=== PATIENT | male | born 1965 | race Caucasian/White ===

== ENCOUNTER → 2020-04-12 | Outpatient (CLI) | payer BC ==
[2020-04-12 09:14] LABS: BASOPHILS ABSOLUTE AUTO 0.05 K/mm3 (0.00-0.23); BASOPHILS PERCENT AUTO 1 % (0-2); EOSINOPHILS ABSOLUTE AUTO 0.01 K/mm3 (0.00-0.68); EOSINOPHILS PERCENT AUTO 0 % (0-6); Hematocrit 47.4 % (37.0-53.0); IMMATURE GRAN ABSOLUTE AUTO 0.02 K/mm3 (0.00-0.10); IMMATURE GRAN PERCENT AUTO 0 % (0-1); LYMPHOCYTES ABSOLUTE AUTO 0.55 K/mm3 (0.84-5.20); LYMPHOCYTES PERCENT AUTO 9 % (21-46); MONOCYTES ABSOLUTE AUTO 0.75 K/mm3 (0.16-1.47); MONOCYTES PERCENT AUTO 12 % (4-13); Mean Corpuscular HGB 31.9 pg (26.0-34.0); Mean Corpuscular HGB Conc 33.8 g/dL (31.5-36.5); Mean Corpuscular Volume 95 fL (80-100); Mean Platelet Volume 9.2 fL (9.1-12.4); NEUTROPHILS ABSOLUTE AUTO 4.72 K/mm3 (1.96-9.15); NEUTROPHILS PERCENT AUTO 77 % (41-73); Platelet Count 293 K/mm3 (150-400); RDW Coefficient Variation 11.3 % (11.7-14.2); RDW Standard Deviation 38.7 fL (35.1-46.3); Red Blood Cell Count 5.01 M/mm3 (4.30-5.90)
[2020-04-12 09:16] LABS: Alanine Aminotransfer (ALT/SGP 42 U/L (12-78); Albumin, Blood 3.5 g/dL (3.4-5.0); Albumin/Globulin Ratio 0.9 (0.8-1.8); Alk Phos 108 U/L (40-126); Anion Gap 8 mmol/L (6-16); Aspartate Aminotrans (AST/SGOT 20 U/L (12-37); Bilirubin, Total 1.4 mg/dL (0.1-1.0); Blood Urea Nitrogen 18 mg/dL (8-24); Bun/Creatinine Ratio 13.5 (12.0-20.0); CO2, Blood 28 mmol/L (21-32); Calcium, Blood 8.7 mg/dL (8.5-10.1); Chloride, Blood 100 mmol/L (98-108); Creatinine, Blood 1.33 mg/dL (0.60-1.20); Globulin, Blood 3.8 g/dL (2.2-4.0); Glomerular Filtration Rate 56 (60-); Glucose, Blood 107 mg/dL (70-99); Potassium, Blood 4.2 mmol/L (3.5-5.5); Sodium, Blood 136 mmol/L (136-145); Total Protein, Blood 7.3 g/dL (6.4-8.2)
[2020-04-12 09:32] LABS: Troponin I <0.017 ng/mL (0.000-0.040)
[2020-04-13 15:44] LABS: CORONAVIRUS (COVID19) CSH-NRL Negative (Negative)
== END | disposition home or self-care (01) ==
LOC: LAB EV 08:57 → LAB SHORT 08:57
PROVIDERS: Physician Assistant
DX: R07.89 Other chest pain (principal); Z20.828 Contact with and (suspected) exposure to other viral communicable diseases
CPT/HCPCS: 80053; 84484; 85025; U0003

== ENCOUNTER 2021-01-01 02:46 | Emergency (ER) | payer BC ==
[~2021-01-01] VITALS: Ht 175.3 cm; Wt 90.7 kg
[2021-01-01 03:17] LABS: BASOPHILS ABSOLUTE AUTO 0.04 K/mm3 (0.00-0.23); BASOPHILS PERCENT AUTO 0 % (0-2); EOSINOPHILS ABSOLUTE AUTO 0.03 K/mm3 (0.00-0.68); EOSINOPHILS PERCENT AUTO 0 % (0-6); Hematocrit 44.2 % (37.0-53.0); Hemoglobin 15.6 g/dL (13.5-17.5); IMMATURE GRAN ABSOLUTE AUTO 0.03 K/mm3 (0.00-0.10); IMMATURE GRAN PERCENT AUTO 0 % (0-1); LYMPHOCYTES ABSOLUTE AUTO 1.01 K/mm3 (0.84-5.20); LYMPHOCYTES PERCENT AUTO 11 % (21-46); MONOCYTES ABSOLUTE AUTO 0.51 K/mm3 (0.16-1.47); MONOCYTES PERCENT AUTO 6 % (4-13); Mean Corpuscular HGB 32.7 pg (26.0-34.0); Mean Corpuscular HGB Conc 35.3 g/dL (31.5-36.5); Mean Corpuscular Volume 93 fL (80-100); Mean Platelet Volume 9.3 fL (9.1-12.4); NEUTROPHILS ABSOLUTE AUTO 7.61 K/mm3 (1.96-9.15); NEUTROPHILS PERCENT AUTO 83 % (41-73); Platelet Count 353 K/mm3 (150-400); RDW Coefficient Variation 11.2 % (11.7-14.2); RDW Standard Deviation 38.1 fL (35.1-46.3); Red Blood Cell Count 4.77 M/mm3 (4.30-5.90); White Blood Cell Count 9.23 K/mm3 (4.00-11.30)
[2021-01-01 03:38] LABS: Alanine Aminotransfer (ALT/SGP 36 U/L (12-78); Albumin/Globulin Ratio 1.3 (0.8-1.8); Alk Phos 91 U/L (50-136); Anion Gap 7 mmol/L (6-16); Aspartate Aminotrans (AST/SGOT 15 U/L (12-37); Bilirubin, Total 1.8 mg/dL (0.1-1.0); Blood Urea Nitrogen 25 mg/dL (8-24); Bun/Creatinine Ratio 18.4 (12.0-20.0); CO2, Blood 27 mmol/L (21-32); Calcium, Blood 10.4 mg/dL (8.5-10.1); Chloride, Blood 104 mmol/L (98-108); Creatinine, Blood 1.36 mg/dL (0.60-1.20); Globulin, Blood 3.1 g/dL (2.2-4.0); Glomerular Filtration Rate 54 (60-); Glucose, Blood 126 mg/dL (70-99); Potassium, Blood 3.8 mmol/L (3.5-5.5); Sodium, Blood 138 mmol/L (136-145); Total Protein, Blood 7.1 g/dL (6.4-8.2); Troponin I <0.015 ng/mL (0.000-0.040)
[2021-01-01] MEDS ORDERED: OLMESARTAN MEDO40 MG PO (05:57)
[2021-01-01] MEDS ORDERED: Simvastatin20 MG (05:57)
[2021-01-01] MEDS ORDERED: OMEP20ER PO (05:57)
== END 2021-01-01 09:09 | disposition home or self-care (01) ==
LOC: ER 02:46
PROVIDERS: Student in an Organized Health Care Education/Training Program
DX: R07.9 Chest pain, unspecified (principal); K21.9 Gastro-esophageal reflux disease without esophagitis; Z79.899 Other long term (current) drug therapy
CPT/HCPCS: 36415; 71045; 80053; 83690; 83880; 84484; 85025; 93005; 93010; 99284-25; A9270

== ENCOUNTER 2021-02-16 19:09 | Emergency (ER) | payer BC ==
[~2021-02-16] VITALS: Ht 175.3 cm; Wt 86.2 kg
[~2021-02-16 19:09] MED LIST changes: -METO5A PO; -OXAYDO5 M1 PO
[2021-02-16] MEDS ORDERED: METO5A PO (19:56)
[2021-02-19] MEDS ORDERED: OXAYDO5 M1 PO (08:06)
== END 2021-02-16 20:13 | disposition home or self-care (01) ==
LOC: ER 19:09
DX: R10.12 Left upper quadrant pain (principal); K21.9 Gastro-esophageal reflux disease without esophagitis; Z79.899 Other long term (current) drug therapy
CPT/HCPCS: 99282; A9270

== ENCOUNTER → 2021-02-16 | Outpatient (CLI) | payer BC ==
[~2021-02-16] MED LIST: METO5A PO; OLMESARTAN MEDO40 MG PO; OMEP20ER PO; OXAYDO5 M1 PO; Simvastatin20 MG
[2021-02-16 17:31] LABS: BASOPHILS ABSOLUTE AUTO 0.03 K/mm3 (0.00-0.23); BASOPHILS PERCENT AUTO 0 % (0-2); EOSINOPHILS ABSOLUTE AUTO 0.02 K/mm3 (0.00-0.68); EOSINOPHILS PERCENT AUTO 0 % (0-6); Hematocrit 42.5 % (37.0-53.0); Hemoglobin 15.2 g/dL (13.5-17.5); IMMATURE GRAN ABSOLUTE AUTO 0.03 K/mm3 (0.00-0.10); IMMATURE GRAN PERCENT AUTO 0 % (0-1); LYMPHOCYTES ABSOLUTE AUTO 0.64 K/mm3 (0.84-5.20); LYMPHOCYTES PERCENT AUTO 7 % (21-46); MONOCYTES ABSOLUTE AUTO 0.55 K/mm3 (0.16-1.47); MONOCYTES PERCENT AUTO 6 % (4-13); Mean Corpuscular HGB 32.8 pg (26.0-34.0); Mean Corpuscular HGB Conc 35.8 g/dL (31.5-36.5); Mean Corpuscular Volume 92 fL (80-100); Mean Platelet Volume 9.4 fL (9.1-12.4); NEUTROPHILS ABSOLUTE AUTO 7.71 K/mm3 (1.96-9.15); NEUTROPHILS PERCENT AUTO 86 % (41-73); Platelet Count 361 K/mm3 (150-400); RDW Coefficient Variation 11.4 % (11.7-14.2); RDW Standard Deviation 38.1 fL (35.1-46.3); Red Blood Cell Count 4.64 M/mm3 (4.30-5.90); White Blood Cell Count 8.98 K/mm3 (4.00-11.30)
[2021-02-16 17:44] LABS: Alanine Aminotransfer (ALT/SGP 40 U/L (12-78); Albumin, Blood 4.3 g/dL (3.4-5.0); Albumin/Globulin Ratio 1.4 (0.8-1.8); Alk Phos 89 U/L (40-126); Anion Gap 14 mmol/L (6-16); Aspartate Aminotrans (AST/SGOT 21 U/L (12-37); Bilirubin, Total 2.8 mg/dL (0.1-1.0); Blood Urea Nitrogen 26 mg/dL (8-24); Bun/Creatinine Ratio 18.7 (12.0-20.0); CO2, Blood 22 mmol/L (21-32); Calcium, Blood 9.3 mg/dL (8.5-10.1); Chloride, Blood 103 mmol/L (98-108); Creatinine, Blood 1.39 mg/dL (0.60-1.20); Glomerular Filtration Rate 53 (60-); Glucose, Blood 122 mg/dL (70-99); Potassium, Blood 3.8 mmol/L (3.5-5.5); Sodium, Blood 139 mmol/L (136-145); Total Protein, Blood 7.3 g/dL (6.4-8.2); Troponin I <0.017 ng/mL (0.000-0.040)
== END | disposition home or self-care (01) ==
LOC: LAB 17:26 → LAB SHORT 17:26
PROVIDERS: Physician Assistant Surgical
DX: R10.13 Epigastric pain (principal)
CPT/HCPCS: 80053; 83690; 84484; 85025

== ENCOUNTER 2021-03-02 08:00 | Inpatient (IN) | payer BC ==
[~2021-03-02] VITALS: Ht 175.3 cm; Wt 80.2 kg
[~2021-03-02 08:00] MED LIST changes: +METO5A PO; +OXAYDO5 M1 PO
[2021-03-02 08:42] LABS: BASOPHILS PERCENT AUTO 1 % (0-2); EOSINOPHILS ABSOLUTE AUTO 0.15 K/mm3 (0.00-0.68); EOSINOPHILS PERCENT AUTO 1 % (0-6); Hemoglobin 13.9 g/dL (13.5-17.5); IMMATURE GRAN ABSOLUTE AUTO 0.29 K/mm3 (0.00-0.10); IMMATURE GRAN PERCENT AUTO 2 % (0-1); LYMPHOCYTES ABSOLUTE AUTO 1.89 K/mm3 (0.84-5.20); LYMPHOCYTES PERCENT AUTO 14 % (21-46); MONOCYTES ABSOLUTE AUTO 1.34 K/mm3 (0.16-1.47); MONOCYTES PERCENT AUTO 10 % (4-13); Mean Corpuscular HGB Conc 33.9 g/dL (31.5-36.5); Mean Corpuscular Volume 95 fL (80-100); Mean Platelet Volume 8.8 fL (9.1-12.4); NEUTROPHILS ABSOLUTE AUTO 10.18 K/mm3 (1.96-9.15); NEUTROPHILS PERCENT AUTO 73 % (41-73); Platelet Count 682 K/mm3 (150-400); RDW Coefficient Variation 11.2 % (11.7-14.2); RDW Standard Deviation 39.2 fL (35.1-46.3); Red Blood Cell Count 4.34 M/mm3 (4.30-5.90); White Blood Cell Count 13.95 K/mm3 (4.00-11.30)
[2021-03-02 08:59] LABS: Alanine Aminotransfer (ALT/SGP 54 U/L (12-78); Albumin, Blood 2.9 g/dL (3.4-5.0); Albumin/Globulin Ratio 0.6 (0.8-1.8); Alk Phos 217 U/L (50-136); Anion Gap 7 mmol/L (6-16); Aspartate Aminotrans (AST/SGOT 25 U/L (12-37); Bilirubin, Total 1.3 mg/dL (0.1-1.0); Blood Urea Nitrogen 22 mg/dL (8-24); CO2, Blood 26 mmol/L (21-32); Calcium, Blood 9.3 mg/dL (8.5-10.1); Chloride, Blood 103 mmol/L (98-108); Creatinine, Blood 1.16 mg/dL (0.60-1.20); Globulin, Blood 4.8 g/dL (2.2-4.0); Glomerular Filtration Rate >60 (60-); Glucose, Blood 95 mg/dL (70-99); Potassium, Blood 4.3 mmol/L (3.5-5.5); Sodium, Blood 136 mmol/L (136-145); Total Protein, Blood 7.7 g/dL (6.4-8.2)
--- NOTE | 2021-03-02 11:52 | NUR ---
PT ARRIVED TO UNIT FROM ED. TRANSFERRED INDPENDENTLY IN ROOM, AMBULATED TO RESTROOM AND VOIDED. REPORTS PAIN TOLERABLE AT THIS TIME. DENIES N/V. REPORTS SOME TENDERNESS TO RUQ. HEALING LAP SITES X4 TO ABDOMEN W/DERMABOND. ORIENTED TO ROOM/CALL LIGHT. PROVIDED GOWN AND PAJAMA PANTS/PT CHANGING AT THIS TIME. PLACED MSG OUT TO DR HOPKINS TO NOTIFY OF ARRIVAL TO UNIT/REQUEST ORDERS.
[2021-03-02 13:01] LABS: International Normalized Ratio 1.05
--- NOTE | 2021-03-02 15:47 | NUR ---
PT TO CT.
--- NOTE | 2021-03-02 17:33 | NUR ---
SUMMARY PT ARRIVED BACK TO UNIT FROM CT GUIDED DRAIN PLACEMENT. DRAIN PRODUCING RED PURULENT FLUID. PT DENIES NEEDS FOR PAIN MEDS AT THIS TIME. DENIES NAUSEA. EATING DINNER. CALL LIGHT IN REACH. VSS.
--- NOTE | 2021-03-03 06:55 | NUR ---
SUMMARY DRAIN CONT TO HAVE PURULENT DRNG.PT REPORTED SUBLILMAZE INEFFECTIVE. WAS TAKING JEANETTE AT HOME S/P LAP JENNIFER.RECEIVED ORDER FOR JEANETTE AND PT VERB EFFECTIVE.
--- NOTE | 2021-03-03 18:23 | NUR ---
PATIENT ALERT AND ORIENTED X 4, ABLE TO MAKE NEEDS AND WANTS KNOWN. NO SIGNS OR SYMPTOMS ACUTE DISTRESS NOTED. GOOD APPETITE NOTED, NO COMPLAINTS OF NAUSEA. UP AD JACKIE IN ROOM. CONTINENT OF BOWEL AND BLADDER WITH USE OF URINAL. DRAIN NOTED TO ABDOMEN DRAINING BROWN/LLAMAS DRAINAGE. CALL LIGHT AND WATER IN EASY REACH. WILL CONTINUE TO MONITOR.
[2021-03-04 04:42] LABS: BASOPHILS ABSOLUTE AUTO 0.05 K/mm3 (0.00-0.23); BASOPHILS PERCENT AUTO 1 % (0-2); EOSINOPHILS ABSOLUTE AUTO 0.19 K/mm3 (0.00-0.68); EOSINOPHILS PERCENT AUTO 3 % (0-6); Hematocrit 38.6 % (37.0-53.0); Hemoglobin 12.8 g/dL (13.5-17.5); IMMATURE GRAN PERCENT AUTO 2 % (0-1); LYMPHOCYTES ABSOLUTE AUTO 1.23 K/mm3 (0.84-5.20); LYMPHOCYTES PERCENT AUTO 20 % (21-46); MONOCYTES ABSOLUTE AUTO 0.95 K/mm3 (0.16-1.47); MONOCYTES PERCENT AUTO 15 % (4-13); Mean Corpuscular HGB 31.9 pg (26.0-34.0); Mean Corpuscular HGB Conc 33.2 g/dL (31.5-36.5); Mean Corpuscular Volume 96 fL (80-100); Mean Platelet Volume 8.6 fL (9.1-12.4); NEUTROPHILS ABSOLUTE AUTO 3.68 K/mm3 (1.96-9.15); NEUTROPHILS PERCENT AUTO 59 % (41-73); Platelet Count 608 K/mm3 (150-400); RDW Coefficient Variation 11.2 % (11.7-14.2); Red Blood Cell Count 4.01 M/mm3 (4.30-5.90)
[2021-03-04 05:23] LABS: Alanine Aminotransfer (ALT/SGP 37 U/L (12-78); Albumin, Blood 2.5 g/dL (3.4-5.0); Albumin/Globulin Ratio 0.6 (0.8-1.8); Alk Phos 162 U/L (50-136); Anion Gap 7 mmol/L (6-16); Aspartate Aminotrans (AST/SGOT 15 U/L (12-37); Bilirubin, Total 0.9 mg/dL (0.1-1.0); Blood Urea Nitrogen 13 mg/dL (8-24); Bun/Creatinine Ratio 11.8 (12.0-20.0); CO2, Blood 27 mmol/L (21-32); Calcium, Blood 8.7 mg/dL (8.5-10.1); Chloride, Blood 105 mmol/L (98-108); Globulin, Blood 4.1 g/dL (2.2-4.0); Glomerular Filtration Rate >60 (60-); Glucose, Blood 98 mg/dL (70-99); Potassium, Blood 4.3 mmol/L (3.5-5.5); Sodium, Blood 139 mmol/L (136-145); Total Protein, Blood 6.6 g/dL (6.4-8.2)
--- NOTE | 2021-03-04 05:28 | NUR ---
SUMMARY URICELL HAS FLUCTUATED FROM SERO-SANG DRNG TO [place] -RED THICK DRNG THIS AM. PT REPORTS MINIMAL DISCOMFORT.
--- NOTE | 2021-03-04 18:10 | NUR ---
PATIENT A&O X 4. ABLE TO MAKE NEEDS AND WANTS KNOWN. NO SIGNS OR SYMPTOMS ACUTE DISTRESS NOTED. CALL LIGHT AND WATER IN EASY REACH. DRAIN TO RIGHT ABDOMEN, DRESSING CDI. 45 ML BROWNISH GREEN DRAINAGE NOTED FROM DRAIN. PATIENT HAS BEEN OUT OF ROOM AMBULATING WITH NO ISSUES NOTED. WILL MONITOR.
--- NOTE | 2021-03-05 04:55 | NUR ---
SHIFT SUMMARY PT A&O X4 AND IN PLEASENT MOOD T/O SHIFT. PT VSS. PT SLEPT IN BED T/O MOST OF SHIFT. LAP SITES C/D/I. DRAIN DRAINING GREEN FLUID. CALL LIGHT W/IN REACH AND PT UTILIZING LIGHT APPROPRIATELY. BT PRESESNT IN ALL 4 Q'S. PT DENIED PAIN T/O SHIFT.
[2021-03-05] MEDS ORDERED: AMOX-CLAV 875-1 EAC5 PO (10:57)
--- NOTE | 2021-03-05 11:53 | NUR ---
DISCHARGE INSTRUCTIONS GIVEN TO PATIENT. PATIENT VERBALIZED UNDERSTANDING. NO SIGNS OR SYMPTOMS ACUTE DISTRESS NOTED. IV REMOVED FROM LFA, NO ISSUES TO NOTE. NO COMPLAINTS OF PAIN.
== END 2021-03-05 11:36 | disposition home or self-care (01) | DRG 862 ==
LOC: ER 08:00 → SURS 08:01
PROVIDERS: Emergency Medicine; ADMIT Surgery
PROC: 0W9G30Z Drainage of Peritoneal Cavity with Drainage Device, Percutaneous Approach (ICD-10-PCS; principal; 2021-03-02)
DX: T81.43XA Infection following a procedure, organ and space surgical site, initial encounter (principal); K65.1 Peritoneal abscess; I10 Essential (primary) hypertension; E78.5 Hyperlipidemia, unspecified; Y83.8 Other surgical procedures as the cause of abnormal reaction of the patient, or of later complication, without mention of misadventure at the time of the procedure
CPT/HCPCS: 36415; 49405; 74177; 78226; 80053; 83605; 83690; 85025; 85610; 87070; 87075; 87077; 87186; 87205; 96365; 96366; 96375; 96376; 99285-25; A9270; A9537; G0378; J0295; J3010; J7030; Q9967

== ENCOUNTER 2021-10-18 06:41 | Day surgery (SDC) | payer BC ==
[~2021-10-18] VITALS: Ht 175.3 cm; Wt 90.7 kg
[~2021-10-18 06:41] MED LIST changes: +AMOX-CLAV 875-1 EAC5 PO; +MULVITA PO; -Simvastatin20 MG; +Simvastatin20 MG PO
--- NOTE | 2021-10-18 07:51 | NUR ---
History, Chart, Medications and Allergies reviewed before start of procedure. Lungs clear T/O to Auscultation. Patient confirms NPO status and agrees with scheduled surgery. Pre-Op teaching done. Pt verbalizes understanding. Patient States Post-Procedure ride home has been arranged. Patient reports completing Chlorhexadine shower X2 prior to admission to hospital.
--- NOTE | 2021-10-18 10:25 | NUR ---
Dressing to procedure site clean, dry, intact with no visible drainage, swelling, erythema or bruising noted. Discharge instructions reviewed with patient. Patient verbalizes understanding. Copy given to patient to take home. Discharged via wheelchair to private car for ride home.
== END 2021-10-18 10:27 | disposition home or self-care (01) ==
LOC: ORSCMMR 06:41 → ORD 07:30 → ORSCMMR 07:30
PROVIDERS: Surgery
PROC: 0WUF0JZ Supplement Abdominal Wall with Synthetic Substitute, Open Approach (ICD-10-PCS; principal; 2021-10-18 08:15)
DX: K43.2 Incisional hernia without obstruction or gangrene (principal); I10 Essential (primary) hypertension; K21.9 Gastro-esophageal reflux disease without esophagitis; Z79.899 Other long term (current) drug therapy
CPT/HCPCS: C1781; J0690; J1100; J1885; J2370; J2405; J2704; J2710; J3010; J7120

== ENCOUNTER → 2023-02-06 | Outpatient (CLI) | payer BC | END | disposition home or self-care (01) | LOC: LAB 13:56 → LAB SHORT 13:56 → PLD 13:56 | DX: C44.41 Basal cell carcinoma of skin of scalp and neck (principal) | CPT/HCPCS: 88305 ==

== ENCOUNTER → 2023-03-19 | Outpatient (CLI) | payer BC | LOC: LAB 14:36 → LAB SHORT 14:36 | DX: C44.41 Basal cell carcinoma of skin of scalp and neck (principal) | CPT/HCPCS: 88305 ==